=== PATIENT | female | born 1960 | race Caucasian/White ===

== ENCOUNTER 2016-09-19 11:26 | Outpatient (CLI) | payer OTHER ==
[~2016-09-19 11:26] MED LIST: LOSA25TA11 PO
[2016-09-19 12:33] LABS: ALBUMIN 3.8 g/dL (3.4-4.8); CALCIUM 8.9 mg/dL (8.4-11.0); CREATININE 0.82 mg/dL (0.55-1.30); POTASSIUM 4.3 mmol/L (3.5-5.1); THYROID STIMULATING HORMONE 1.06 uIu/mL (0.34-4.82); TOTAL BILIRUBIN 0.3 mg/dL (0.0-1.0); TOTAL PROTEIN, SERUM 7.9 g/dL (6.4-8.3)
[2016-09-20 15:31] LABS: HEPATITIS B SURFACE AG Negative (Negative); HEPATITIS C VIRUS AB 0.1 s/co ratio (0.0-0.9)
== END 2016-09-19 21:20 | disposition home or self-care (01) ==
LOC: SLB 11:26
PROVIDERS: ATTEND Internal Medicine
DX: I10 Essential (primary) hypertension (principal); R73.09 Other abnormal glucose
CPT/HCPCS: 36415; 80053; 80061; 83036; 84443-TC; 86706; 86803; 87340

== ENCOUNTER 2017-02-10 08:32 | Outpatient (CLI) | payer OTHER ==
[2017-02-10 08:39] LABS: BILIRUBIN,URINE NEGATIVE (NEGATIVE); BLOOD, URINE NEGATIVE (NEGATIVE); CLARITY/URINE SL HAZY (CLEAR); COLOR,URINE YELLOW (YELLOW); GLUCOSE,URINE NEGATIVE (NEGATIVE); KETONES,URINE NEGATIVE (NEGATIVE); LEUKOCYTE ESTERASE ,URINE NEGATIVE (NEGATIVE); NITRITE, URINE NEGATIVE (NEGATIVE); PH,URINE 6.5 (5.0-8.0); PROTEIN URINE NEGATIVE (NEGATIVE); UROBILINOGEN,URINE 0.2 (0.2-1.0)
== END 2017-02-10 18:38 | disposition home or self-care (01) ==
LOC: SLB 08:32
PROVIDERS: ATTEND Internal Medicine
DX: R30.0 Dysuria (principal)
CPT/HCPCS: 81003; 87086

== ENCOUNTER 2017-04-06 07:42 | Outpatient (CLI) | payer OTHER | END 2017-04-06 19:46 | disposition home or self-care (01) | LOC: SMA 07:42 | PROVIDERS: ATTEND Internal Medicine | DX: Z12.31 Encounter for screening mammogram for malignant neoplasm of breast (principal) | CPT/HCPCS: 77067 ==

== ENCOUNTER 2017-05-27 08:14 | Inpatient (IN) | payer OTHER ==
[~2017-05-27] VITALS: Ht 162.6 cm; Wt 109.8 kg
[2017-05-27 08:14] VITALS: BP_SYST 159
--- NOTE | 2017-05-27 08:15 | NUR ---
Patient to ER bed 8 to gown for evaluation. Side rails up. Report received from CESAR Walters.
--- NOTE | 2017-05-27 08:18 | NUR ---
Pt is AAO x 4 and ambulatory. Pt complains of having pressure to chest since this morning, 08/29. Pt states "she didn't feel right yesterday and woke up this monring feeling dizzy, lightheaded, blurred vision, weak, and nauseous." Pt states she had not eaten because she was feeling sick. Pt denies vomiting or fever. No other injuries/complaints per patient or noted.
--- NOTE | 2017-05-27 08:21 | NUR ---
ER Dr. Nina at bedside examining patient.
[2017-05-27] MEDS ORDERED: ASPIRIN 81 MG TAB.CHEW PO ONE (08:30)
[2017-05-27] MEDS ORDERED: MECLIZINE HCL 25 MG TABLET (ANITVERT) PO ONE (08:30)
[2017-05-27] MEDS ORDERED: KETOROLAC TROMETHAMINE 30 MG VIAL IVP ONE (08:30)
--- NOTE | 2017-05-27 08:48 | NUR ---
Pt went to radiology in stable condition.
--- NOTE | 2017-05-27 08:59 | NUR ---
Pt returned from radiology in stable condition.
--- NOTE | 2017-05-27 09:09 | NUR ---
Medications were given, pt tolerated well. No adverse reaction, will continue to monitor.
[2017-05-27 09:15] LABS: BASOPHILS % (AUTO) 0.4 % (0.0-2.0); CREATININE 0.72 mg/dL (0.55-1.30); EOSINOPHILS # (AUTO) 0.1 K/uL (0.0-0.4); EOSINOPHILS % (AUTO) 2.3 % (0.0-4.0); HEMATOCRIT 41.7 % (36-48); HEMOGLOBIN 13.8 g/dL (12.0-16.0); LYMPHOCYTES % (AUTO) 34.5 % (20.5-51.5); MEAN CORPUSCULAR HEMOGLOBIN 30 pg (27-31); MEAN CORPUSCULAR HGB CONC 33 % (32-36); MEAN CORPUSCULAR VOLUME 90 fL (79.0-98.0); MONOCYTES # (AUTO) 0.3 K/uL (0.0-1.0); MONOCYTES % (AUTO) 4.9 % (1.7-9.3); NEUTROPHILS # (AUTO) 3.3 K/uL (1.8-7.7); NEUTROPHILS % (AUTO) 57.9 % (40.0-70.0); PLATELET COUNT (AUTO) 331 K/uL (130-430); POTASSIUM 4.3 mmol/L (3.5-5.1); PROTHROMBIN TIME 9.7 SECS (9.5-12.5); RED BLOOD CELL COUNT(AUTO) 4.63 MIL/uL (4.2-6.2); RED CELL DISTRIBUTION WIDTH 13.5 % (9.0-15.0); WHITE BLOOD COUNT (AUTO) 5.7 K/uL (4.8-10.8)
[2017-05-27 09:20] LABS: ALBUMIN 3.5 g/dL (3.4-4.8); TOTAL BILIRUBIN 0.3 mg/dL (0.0-1.0)
[2017-05-27] MEDS ORDERED: LORazepam 2 MG/ML VIAL (FOR ER USE) IVP ONE (09:45)
[2017-05-27] MEDS ORDERED: LOSA50TA3 PO (09:52)
--- NOTE | 2017-05-27 09:56 | NUR ---
Transfer to Telemetry via ACLS protocol. Licensed nurse present. IV present no signs or symptoms of infiltration.
--- NOTE | 2017-05-27 09:56 | NUR ---
Patient will be admitted to care of Dr. Basurto. Admitted to Telemetry unit. Will go to room 108 A. Belongings list completed. Summary report printed. Report will be given at bedside.
--- NOTE | 2017-05-27 10:07 | NUR ---
CONSULTATION PAGED REASON FOR CONSULTATION:CHEST PAIN WAS CONSULT CALLED?Y PERSON WHO WAS NOTIFIED:ADELINE CONSULTING PHYSICIAN:OSVALDO LEAVITT RODENT CONTROL WORKER SPECIALTY:VENDING ENTERPRISES SUPERVISOR PHONE NUMBER:[phone] ORDERING PHYSICIAN:NIKO ROBB
--- NOTE | 2017-05-27 10:09 | NUR ---
ADMISSION NOTE Received patient from ER via gurney. Patient admitted with diagnosis of chest pain. Patient is awake, alert, oriented X 4 . Patient oriented to hospital room, call light, toileting, pain management and safety-teach back done. Patient informed that Fela will be her nurse and that their room number is 108-a. Personal belongings checked and Belongings List documented. Call light within reach.
[2017-05-27 10:13] VITALS: BP_SYST 132
[2017-05-27 11:01] LABS: BILIRUBIN,URINE NEGATIVE (NEGATIVE); BLOOD, URINE NEGATIVE (NEGATIVE); CLARITY/URINE CLEAR (CLEAR); COLOR,URINE YELLOW (YELLOW); GLUCOSE,URINE NEGATIVE (NEGATIVE); KETONES,URINE NEGATIVE (NEGATIVE); LEUKOCYTE ESTERASE ,URINE NEGATIVE (NEGATIVE); NITRITE, URINE NEGATIVE (NEGATIVE); PROTEIN URINE NEGATIVE (NEGATIVE); UROBILINOGEN,URINE 0.2 (0.2-1.0)
--- NOTE | 2017-05-27 11:05 | NUR ---
Rounding/Admit: Patient laying in bed resting. Received from Viridiana GUERRERO. Patient denies chest pain and discomfort. Breathing is even and unlabored. No distress noted. Patient states "I'm feeling tired". Patient also asked for water. Water was given. Lights dimmed and patient was positioned for comfort. will continue to monitor patient.
[2017-05-27 12:14] VITALS: BP_SYST 132
[2017-05-27] MEDS ORDERED: FAMOTIDINE 20 MG TABLET PO ONE (12:15)
[2017-05-27] MEDS ORDERED: ACETAMINOPHEN 325 MG TABLET PO PRN (12:15)
[2017-05-27] MEDS ORDERED: IBUPROFEN 400 MG TABLET PO PRN (12:15)
--- NOTE | 2017-05-27 12:17 | NUR ---
Rounding: Patient laying in bed asleep. No distress noted.
--- NOTE | 2017-05-27 12:30 | NUR ---
CONSULTATION PAGED REASON FOR CONSULTATION:MCDONALD, FACIAL PARESTHESIAS, BLURRY VISION WAS CONSULT CALLED?Y PERSON WHO WAS NOTIFIED:JOSE CONSULTING PHYSICIAN:CATRACHITA GARDUNO AMBULETTE DRIVER SPECIALTY:NEURO AMBULETTE DRIVER PHONE NUMBER:[phone] ORDERING PHYSICIAN:
--- NOTE | 2017-05-27 14:10 | NUR ---
Rounding: patient in bed asleep. No distress noted. Will continue to monitor.
--- NOTE | 2017-05-27 15:59 | NUR ---
Rounding: Patient laying in bed asleep. No signs of pain or discomfort. Breathing is even and unlabored with no distress noted. Medications tolerated well. Bed in lowest position, wheels locked, side rails x3 and call light within reach. Will continue to monitor.
[2017-05-27 16:01] VITALS: BP_SYST 133
--- NOTE | 2017-05-27 18:51 | NUR ---
Closing Note: Patient laying in bed resting. Patient denies chest pain and discomfort. Breathing is even and unlabored with no distress noted. patient denies dizziness and blurred vision. States feeling better. IV patent and intact. All needs met. Will endorse plan of care to NOC, nurse.
--- NOTE | 2017-05-27 19:25 | NUR ---
Beginning of shift assessment Pt sitting up in bed conversing w visitor bedside. A&Ox4 able to make needs known, able to follow commands. Respirations even and unlabored. No acute distress noted. Pt reports she is able to safely ambulate to the restroom. Reports feeling dizzy periodically; however "it has gotten a lot better from earlier." 20 g to R AC, SL. No s/s of infiltration or infection. Call light within reach, all needs met at this time.
[2017-05-27] MEDS: MECLIZINE HCL 25 MG TABLET (ANITVERT) PO SCH (20:07)
[2017-05-27] MEDS: FLUTICASONE PROPIONATE 50 mCg/SPRAY 16 GM NS SCH (20:07)
--- NOTE | 2017-05-28 | NUR ---
Pt rounds Pt resting w eyes closed. Easily arousable. No acute changes in condition at this time.
[2017-05-28 00:41] VITALS: BP_SYST 129
--- NOTE | 2017-05-28 03:45 | NUR ---
Pt rounds Pt resting w eyes closed. Easily arousable. No acute changes in condition at this time.
[2017-05-28 07:36] LABS: ALBUMIN 3.1 g/dL (3.4-4.8); CALCIUM 8.9 mg/dL (8.4-11.0); CREATININE 0.73 mg/dL (0.55-1.30); POTASSIUM 4.2 mmol/L (3.5-5.1); TOTAL BILIRUBIN 0.3 mg/dL (0.0-1.0)
--- NOTE | 2017-05-28 07:45 | NUR ---
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 PATIENT RESTING IN BED, EASILY AROUSABLE. A/Ox4. ABLE TO MAKE NEEDS KNOWN VERBALLY. DENIES PAIN AT THIS TIME. PATIENT STATED SHES NOT DIZZY AT THE MOMENT, BUT STILL HAS EPISODES OF DIZZINESS. ROOM AIR. NO ACUTE DISTRESS. NO SOB. RESPIRATION EVEN AND UNLABORED. SKIN WARM AND DRY TO TOUCH. ORIENTED PATIENT TO CALL LIGHT AND TO USE FOR ASSIST, PATIENT VERBALIZED UNDERSTANDING. CALL LIGHT IN REACH. CONTINUE TO MONITOR.
[2017-05-28 08:00] VITALS: BP_SYST 138
[2017-05-28] MEDS ORDERED: LOSARTAN POTASSIUM 25 MG TABLET PO SCH (09:00)
[2017-05-28] MEDS ORDERED: ASPIRIN 81 MG TABLET(ECOTRIN) PO SCH (09:00)
[2017-05-28] MEDS ORDERED: FAMOTIDINE 20 MG TABLET PO SCH (09:00)
[2017-05-28] MEDS: FLUTICASONE PROPIONATE 50 mCg/SPRAY 16 GM NS SCH (09:11)
[2017-05-28] MEDS: MECLIZINE HCL 25 MG TABLET (ANITVERT) PO SCH ×2 (09:14→15:27)
--- NOTE | 2017-05-28 09:50 | NUR ---
NOTES PATIENT STABLE. NO ACUTE DISTRESS. ECHO BEING DONE AT BEDSIDE. SON AT BEDSIDE. CONTINUE TO MONITOR
--- NOTE | 2017-05-28 10:20 | NUR ---
IV PATIENT C/O IV TO RIGHT AC IS UNCOMFORTABLE AND WANTS TO REMOVE IT. EXPLAINED TO PATIENT RISK/BENEFITS OF IV. PATIENT REQUEST TO DISCONTINUE IV LINE. D/C IV WITH NO COMPLICATIONS NOTED, PATIENT ABDOULAYE WELL, CLEAN DRY DRESSING APPLIED TO SITE.
--- NOTE | 2017-05-28 12:10 | NUR ---
NOTES PATIENT STABLE. SITTING UP IN CHAIR. DENIES PAIN. NO ACUTE DISTRESS. NO SOB. RESPIRATION EVEN AND UNLABORED. REMINDED PATIENT TO AMBULATE WITH ASSIST. CALL LIGHT IN REACH. CONTINUE TO MONITOR
[2017-05-28 12:52] VITALS: BP_SYST 153
--- NOTE | 2017-05-28 13:35 | NUR ---
PATIENT SEEN BY AT BEDSIDE. PATIENT STABLE. NO ACUTE DISTRESS. CONTINUE TO MONITOR. CALL LIGHT IN REACH.
--- NOTE | 2017-05-28 13:58 | NUR ---
Dietitian Recommendations *Recommend continuing 2gm Na diet per MD. Please see Nutritional Assessment for details. DREW, KB
--- NOTE | 2017-05-28 15:00 | NUR ---
NOTES PATIENT STILL SITTING IN CHAIR. DENIES PAIN. NO ACUTE DISTRESS. ALL NEEDS MET. SISTER SITTING BESIDE PATIENT. CONTINUE TO MONITOR. CALL LIGHT IN REACH.
[2017-05-28 15:54] VITALS: BP_SYST 133
--- NOTE | 2017-05-28 16:40 | NUR ---
D/C Patient Patient given medication reconciliation form and D/C instructions. Exit Care provided. Patient verbalized understanding. MD discussed with patient the results and treatment provided. Ambulatory with assist for discharge to home. Patient in stable condition, ID band removed. IV catheter removed, intact and dressing applied, no active bleeding. Rx of Meclizine and Losartan given. Doctors note for return to work on 05/31/17 given. Patient educated on pain management. All belongings sent with patient.
== END 2017-05-28 16:40 | disposition home or self-care (01) | DRG 313 ==
LOC: SED 08:14 → STU 09:43
PROVIDERS: ADMIT Internal Medicine; ATTEND Internal Medicine
DX: R07.89 Other chest pain (principal); Z68.41 Body mass index [BMI] 40.0-44.9, adult; E78.5 Hyperlipidemia, unspecified; R51 Headache; R20.2 Paresthesia of skin; F41.9 Anxiety disorder, unspecified; F43.9 Reaction to severe stress, unspecified; E66.8 Other obesity; I10 Essential (primary) hypertension; Z88.8 Allergy status to other drugs, medicaments and biological substances; Z88.1 Allergy status to other antibiotic agents; Z79.899 Other long term (current) drug therapy; Z80.41 Family history of malignant neoplasm of ovary; Z90.49 Acquired absence of other specified parts of digestive tract
CPT/HCPCS: 36415; 70450-TC; 71045; 80053; 80061; 81003; 83735-TC; 84443-TC; 84484; 85025; 85610-TC; 85730-TC; 93005; 93306; 93880; 96374; 96375; 99285; J1885; J2060; J8597

== ENCOUNTER 2017-08-05 11:17 | Emergency (ER) | payer OTHER ==
[~2017-08-05] VITALS: Ht 160 cm; Wt 110.2 kg
[~2017-08-05 11:17] MED LIST changes: -LOSA25TA11 PO; +LOSA50TA3 PO
[2017-08-05 11:44] VITALS: BP_SYST 143
[2017-08-05 13:17] VITALS: BP_SYST 141
== END 2017-08-05 13:17 | disposition home or self-care (01) ==
LOC: SED 11:17
DX: S83.92XA Sprain of unspecified site of left knee, initial encounter (principal); I10 Essential (primary) hypertension; Z88.1 Allergy status to other antibiotic agents; Z88.6 Allergy status to analgesic agent; W01.0XXA Fall on same level from slipping, tripping and stumbling without subsequent striking against object, initial encounter; Y93.01 Activity, walking, marching and hiking; Y92.009 Unspecified place in unspecified non-institutional (private) residence as the place of occurrence of the external cause; Y99.8 Other external cause status
CPT/HCPCS: 73564; 73590-TC; 99284

== ENCOUNTER 2017-08-23 10:09 | Outpatient (CLI) | payer OTHER | END 2017-08-23 20:16 | disposition home or self-care (01) | LOC: SMI 10:09 | PROVIDERS: ATTEND Orthopaedic Surgery | DX: M25.462 Effusion, left knee (principal); R60.0 Localized edema; S89.92XA Unspecified injury of left lower leg, initial encounter; X58.XXXA Exposure to other specified factors, initial encounter; Y93.89 Activity, other specified; Y92.89 Other specified places as the place of occurrence of the external cause; Y99.8 Other external cause status | CPT/HCPCS: 73721 ==

== ENCOUNTER 2017-08-26 10:00 | Outpatient (CLI) | payer OTHER | END 2017-08-26 19:29 | disposition home or self-care (01) | LOC: SMI 10:00 | PROVIDERS: ATTEND Orthopaedic Surgery | DX: S93.402D Sprain of unspecified ligament of left ankle, subsequent encounter (principal); M77.32 Calcaneal spur, left foot; X58.XXXD Exposure to other specified factors, subsequent encounter | CPT/HCPCS: 73721 ==

== ENCOUNTER 2017-09-03 10:33 | Outpatient (CLI) | payer OTHER ==
[2017-09-03 13:19] LABS: BILIRUBIN,URINE NEGATIVE (NEGATIVE); BLOOD, URINE NEGATIVE (NEGATIVE); CLARITY/URINE CLEAR (CLEAR); COLOR,URINE YELLOW (YELLOW); GLUCOSE,URINE NEGATIVE (NEGATIVE); KETONES,URINE NEGATIVE (NEGATIVE); LEUKOCYTE ESTERASE ,URINE NEGATIVE (NEGATIVE); NITRITE, URINE NEGATIVE (NEGATIVE); PROTEIN URINE TRACE (NEGATIVE); UROBILINOGEN,URINE 0.2 (0.2-1.0)
[2017-09-03 13:55] LABS: CALCIUM 8.9 mg/dL (8.4-11.0); CREATININE 0.79 mg/dL (0.55-1.30); POTASSIUM 4.3 mmol/L (3.5-5.1)
[2017-09-03 14:10] LABS: ALBUMIN 3.7 g/dL (3.4-4.8); THYROID STIMULATING HORMONE 1.35 uIu/mL (0.34-4.82); TOTAL BILIRUBIN 0.4 mg/dL (0.0-1.0)
== END 2017-09-03 18:35 | disposition home or self-care (01) ==
LOC: SLB 10:33
PROVIDERS: ATTEND Orthopaedic Surgery
DX: E66.9 Obesity, unspecified (principal); I10 Essential (primary) hypertension; Z79.1 Long term (current) use of non-steroidal anti-inflammatories (NSAID)
CPT/HCPCS: 36415; 80053; 80061; 81003; 82272; 83051; 84443-TC

== ENCOUNTER 2017-10-06 08:37 | Outpatient (CLI) | payer OTHER | END 2017-10-06 20:39 | disposition home or self-care (01) | LOC: SUS 08:37 | PROVIDERS: ATTEND Orthopaedic Surgery | DX: R60.0 Localized edema (principal); I10 Essential (primary) hypertension | CPT/HCPCS: 93970 ==

== ENCOUNTER 2017-11-19 09:45 | Outpatient (CLI) | payer OTHER | END 2017-11-19 20:12 | disposition home or self-care (01) | LOC: SMI 09:45 | PROVIDERS: ATTEND Orthopaedic Surgery | DX: G35 Multiple sclerosis (principal); I10 Essential (primary) hypertension | CPT/HCPCS: 70551 ==

== ENCOUNTER 2017-11-19 15:49 | Emergency (ER) | payer OTHER ==
[~2017-11-19] VITALS: Ht 162.6 cm; Wt 113.4 kg
--- NOTE | 2017-11-19 15:51 | NUR ---
Note cecilia in ED - 11/19/17 at 1649 by [email or web address] Patient to ER bed 5 to gown for evaluation. Side rails up.
--- NOTE | 2017-11-19 15:51 | NUR ---
Patient to ER bed 6 to gown for evaluation. Side rails up
--- NOTE | 2017-11-19 15:52 | NUR ---
Patient is awake, alert, and oriented x4. She is complaining of falling while walking from her car to her apartment. Patient states her leg just buckled around noon today. She is complaing of pain around her left ankle and bottom of left foot. It is difficult for her to rotate her ankle, she is able to wiggle her toes. She presents with slight swelling to her left ankle. Patient reports a history of HTN, allergies (takes flonase), , lap choly, umbilical hernia repair, menopause since 52.
[2017-11-19 15:55] VITALS: BP_SYST 132
--- NOTE | 2017-11-19 16:02 | NUR ---
ER at bedside examining patient.
[2017-11-19 16:45] VITALS: BP_SYST 132
--- NOTE | 2017-11-19 16:47 | NUR ---
Patient given written and verbal discharge instructions and verbalizes understanding. ER MD discussed with patient the results and treatment provided. Patient in stable condition. ID arm band removed. Patient educated on pain management and to follow up with PMD. Pain Scale 5/10, patient states it is within tolerable limits. Opportunity for questions provided and answered. Medication side effect fact sheet provided.
== END 2017-11-19 16:45 | disposition home or self-care (01) ==
LOC: SED 15:49
DX: S93.402A Sprain of unspecified ligament of left ankle, initial encounter (principal); I10 Essential (primary) hypertension; Z88.1 Allergy status to other antibiotic agents; Z88.8 Allergy status to other drugs, medicaments and biological substances; Z90.49 Acquired absence of other specified parts of digestive tract; W19.XXXA Unspecified fall, initial encounter; Y93.89 Activity, other specified; Y92.89 Other specified places as the place of occurrence of the external cause; Y99.8 Other external cause status
CPT/HCPCS: 99284